=== PATIENT | male | born 1940 | race African-American/Black ===

== ENCOUNTER 2024-11-07 14:48 | Emergency (ER) | payer OTHER ==
[~2024-11-07] VITALS: Ht 175.3 cm; Wt 82.0 kg
[2024-11-07 14:51] VITALS: O2SAT 99
[2024-11-07] MEDS: SODIUM CHLORIDE 0.9% 1,000 ML IV ONE (15:49)
[2024-11-07 17:06] LABS: BASOPHILS % 0.2 % (0.0-2.0); EOSINOPHILS % 0.3 % (0.0-5.0); HEMATOCRIT. 37.2 % (42.0-52.0); HEMOGLOBIN. 12.4 g/dL (14.0-18.0); LYMPHOCYTES % 12.9 % (20.0-50.0); MEAN CORPUSCULAR HEMOGLOBIN 27.7 pg (28.0-32.0); MEAN CORPUSCULAR HGB CONC 33.3 g/dL (31.0-37.0); MEAN PLATELET VOLUME 9.1 fl (7.4-10.4); MONOCYTES % 6.2 % (2.0-8.0); NEUTROPHILS % 80.4 % (40.0-76.0); PLATELET 133 x1000/uL (130-400); RED BLOOD CELL COUNT 4.48 mill/uL (4.7-6.1); RED CELL DISTRIBUTION WIDTH 14.4 % (11.6-14.6)
[2024-11-07 17:15] LABS: CHLORIDE 104 mEq/L (98-107); POTASSIUM 3.3 mEq/L (3.5-5.1); SODIUM 141 mEq/L (136-145)
[2024-11-07 17:16] LABS: CALCIUM 10.1 mg/dL (8.7-10.4); CARBON DIOXIDE 27 mEq/L (21-32)
[2024-11-07 17:21] LABS: CREATININE 1.9 mg/dL (0.6-1.3); GLUCOSE 218 mg/dL (70-105); UREA NITROGEN BLOOD 20 mg/dL (9-23)
[2024-11-07 17:22] LABS: TROPONIN I HIGH SENSITIVITY 35 ng/L (3.0-53)
[2024-11-07 18:06] LABS: INR 1.1; PROTHROMBIN TIME 11.8 sec (9.6-11.0)
[2024-11-07 18:10] LABS: TROPONIN I HIGH SENSITIVITY 36 ng/L (3.0-53)
[2024-11-07 19:05] VITALS: TEMP 37
[2024-11-07] MEDS: POTASSIUM CHLORIDE 20MEQ TABLET SR PO NR (19:23)
[2024-11-07 21:29] VITALS: BP 142/76; PULSE 65; RESP 18; O2SAT 100
== END 2024-11-07 22:13 | disposition short-term general hospital (02) ==
LOC: ER 14:48 → CANBEDREQ 18:59 → ER 22:13
DX: R55 Syncope and collapse (principal); E11.9 Type 2 diabetes mellitus without complications
CPT/HCPCS: 99285; 96360; 96361; 71045; 80048; 83880; 85025; 85610; 86850; 86900; 86901; 84484; 36415; 93005; J7030